=== PATIENT | male | born 1990 | race American Indian/Alaskan Native ===

== ENCOUNTER 2018-12-27 18:16 | Emergency (ER) | payer SELFPAY ==
--- NOTE | 2018-12-27 18:36 | Emergency Department Report ---
Blank Doc - Documentation Documentation: This is a 28-year-old male that presents with lower back pain. This initial assessment/diagnostic orders/clinical plan/treatment(s) is/are subject to change based on patient's health status, clinical progression and re- assessment by fellow clinical providers in the ED. Further treatment and workup at subsequent clinical providers discretion. Patient/guardians urged not to elope from the ED as their condition may be serious if not clinically assessed and managed. Initial orders include: 1- Patient sent to [facility] for further evaluation and treatment 2- xrays
[2018-12-27 18:38] VITALS: BP 127/77
--- NOTE | 2018-12-27 19:36 | XRay Report ---
LUMBAR SPINE 3 VIEWS INDICATION / CLINICAL INFORMATION: Lower back pain. COMPARISON: None available. FINDINGS: VERTEBRAE: No acute fracture. No significant malalignment. Transitional lumbosacral segment with enla rgement of the right L5 transverse process with pseudoarticulation with the sacrum. DISC SPACES / FACET JOINTS:No significant abnormality. PARASPINAL SOFT TISSUES:No significant abnormality. ADDITIONAL FINDINGS: None. Signer Name: Fran Guzman MD Signed: 12/27/2018 7:32 PM Workstation Name: [id number]
[2018-12-27] MEDS ORDERED: PYRIDIUM PO ONE (20:16)
[2018-12-27] MEDS ORDERED: ZITHROMAX PO ONE (20:16)
[2018-12-27] MEDS ORDERED: XYLOCAINE 1% MPF 5 mL INFILTRATI ONE (20:16)
[2018-12-27] MEDS ORDERED: ROCEPHIN IM ONE (20:16)
[2018-12-27 20:38] LABS: Bilirubin,Urine NEG (Negative); Blood,Urine NEG (Negative); Color,Urine Yellow (Yellow); Mucus,Urine FEW /HPF; Protein,Urine <15 mg/dL mg/dL (Negative); WBC,Urine > 182.0 /HPF (0.0-6.0)
--- NOTE | 2018-12-27 21:19 | Emergency Department Report ---
ED Male HPI - General Chief complaint: Pain General Stated complaint: TAILBONE PAIN/STD Time Seen by Provider: 12/27/18 18:35 Source: patient Mode of arrival: Ambulatory Limitations: No Limitations - History of Present Illness Initial comments: Patient is a 28-year-old -[place] male with a history of chronic low back pain who presents to the ED with acute exacerbation of his chronic low back pain and penile discharge and dysuria for the last 2 days. Patient states that he had an unprotected sexual intercourse about a week ago. Patient denies fever, chills, nausea, vomiting, dizziness, headache, chest pain, abdominal pain, testicular pain, cough, sore throat, traumatic injury or heavy lifting. MD Complaint: penile discharge, dysuria, other (penile discharge; Chronic low back pain) -: days(s) (2) Location: penis Radiation: other (low back) Severity: severe Severity scale (0 -10): 7 Quality: aching, sharp Consistency: constant Improves with: none Worsens with: urination discharge, dysuria, other (low back pain). denies: swelling, mass, rash, urinary retention, blood in urine, fever, nausea/vomiting - Related Data Sexually active: Yes Previous Rx's Medication Instructions Recorded Last Taken Type Cyclobenzaprine [Flexeril] 10 mg PO Q8H PRN #15 tablet 12/27/18 Unknown Rx Naproxen [Naprosyn] 500 mg PO Q12H PRN #20 tablet 12/27/18 Unknown Rx Sulfamethoxazole/Trimethoprim 1 each PO Q12H #20 tablet 12/27/18 Unknown Rx [Bactrim DS TAB] metroNIDAZOLE [Flagyl] 500 mg PO Q12HR #20 tab 12/27/18 Unknown Rx Allergies Allergy/AdvReac Type Severity Reaction Status Date / Time No Known Allergies Allergy Unverified 12/27/18 18:38 ED Review of Systems ROS: Stated complaint: TAILBONE PAIN/STD Other details as noted in HPI Comment: All other systems reviewed and negative Constitutional: denies: chills, fever Eyes: denies: eye pain, eye discharge, vision change ENT: denies: ear pain, throat pain Respiratory: denies: cough, shortness of breath, wheezing Cardiovascular: denies: chest pain, palpitations Endocrine: no symptoms reported Gastrointestinal: denies: abdominal pain, nausea, diarrhea Genitourinary: dysuria, frequency, discharge. denies: urgency, hematuria, testicular pain, testicular mass Musculoskeletal: back pain, arthralgia, myalgia. denies: joint swelling Skin: denies: rash, lesions Neurological: denies: headache, weakness, paresthesias Psychiatric: denies: anxiety, depression Hematological/Lymphatic: denies: easy bleeding, easy bruising ED Past Medical Hx - Past Medical History Previous Medical History?: No - Surgical History Past Surgical History?: No - Social History Smoking Status: Never Smoker Substance Use Type: None - Medications Home Medications: Home Medications Medication Instructions Recorded Confirmed Last Taken Type Cyclobenzaprine [Flexeril] 10 mg PO Q8H PRN #15 tablet 12/27/18 Unknown Rx Naproxen [Naprosyn] 500 mg PO Q12H PRN #20 tablet 12/27/18 Unknown Rx Sulfamethoxazole/Trimethoprim 1 each PO Q12H #20 tablet 12/27/18 Unknown Rx [Bactrim DS TAB] metroNIDAZOLE [Flagyl] 500 mg PO Q12HR #20 tab 12/27/18 Unknown Rx ED Physical Exam - General Limitations: No Limitations General appearance: alert, in no apparent distress - Head Head exam: Present: atraumatic, normocephalic, normal inspection - Eye Eye exam: Present: normal appearance, PERRL, EOMI. Absent: scleral icterus, conjunctival injection Pupils: Present: normal accommodation - ENT ENT exam: Present: normal exam, normal orophraynx, mucous membranes moist, TM's normal bilaterally, normal external ear exam - Neck Neck exam: Present: normal inspection, full ROM. Absent: tenderness, meningismus, lymphadenopathy, thyromegaly - Respiratory Respiratory exam: Present: normal lung sounds bilaterally. Absent: respiratory distress, wheezes, rales, rhonchi, chest wall tenderness, accessory muscle use - Cardiovascular Cardiovascular Exam: Present: regular rate, normal rhythm, normal heart sounds. Absent: systolic murmur, diastolic murmur, rubs, gallop - GI/Abdominal GI/Abdominal exam: Present: soft, normal bowel sounds. Absent: tenderness, guarding, rebound, hyperactive bowel sounds, hypoactive bowel sounds - Rectal Rectal exam: Present: deferred - exam: Present: urethral discharge, circumcision. Absent: testicular tenderness, scrotal swelling, vertical testicular lie External exam: Present: normal external exam - Extremities Exam Extremities exam: Present: normal inspection, full ROM, normal capillary refill - Back Exam Back exam: Present: normal inspection, full ROM, tenderness (Palpable lumbosacral paraspinal tenderness). Absent: CVA tenderness (R), CVA tenderness (L), muscle spasm, paraspinal tenderness, vertebral tenderness - Neurological Exam Neurological exam: Present: alert, oriented X3, CN II-XII intact, normal gait, reflexes normal - Psychiatric Psychiatric exam: Present: normal affect, normal mood - Skin Skin exam: Present: warm, dry, intact, normal color. Absent: rash ED Course Vital Signs 12/27/18 18:35 Temperature 98.5 F Pulse Rate 72 Respiratory 18 Rate Blood Pressure 127/77 O2 Sat by Pulse 100 Oximetry - Reevaluation(s) Reevaluation #1: 12/27/18 21:31 This is a 28-year-old male with a history of chronic low back pain who presented to the ED with worsening low back pain as well as dysuria and penile discharge for 2 days. In the ED the patient is alert and oriented 3 and is not in distress with normal vital signs. Urinalysis shows significant urinary tract infection, characteristic of sexual transmitted disease in the male of his age. Patient was empirically treated for chlamydia and gonorrhea in the ED and discharged home on pain medications and muscle relaxants for his chronic low back pain as well as antibiotics for urinary tract infection. Patient was advised to ensure that his sexual partner gets treated at the health department, and was also advised to follow-up himself department for further STD tests. Patient was advised to return to the ED immediately if symptoms get worse. ED Medical Decision Making - Medical Decision Making This is a 28-year-old male with a history of chronic low back pain who presented to the ED with worsening low back pain as well as dysuria and penile discharge for 2 days. In the ED the patient is alert and oriented 3 and is not in distress with normal vital signs. Urinalysis shows significant urinary tract infection, characteristic of sexual transmitted disease in the male of his age. Patient was empirically treated for chlamydia and gonorrhea in the ED and discharged home on pain medications and muscle relaxants for his chronic low back pain as well as antibiotics for urinary tract infection. Patient was advised to ensure that his sexual partner gets treated at the health department, and was also advised to follow-up himself department for further STD tests. Patient was advised to return to the ED immediately if symptoms get worse. - Differential Diagnosis chronic low back pain; STD; Urethritis; acute UTI; Muscle spasm Critical care attestation.: If time is entered above; I have spent that time in minutes in the direct care of this critically ill patient, excluding procedure time. ED Disposition Clinical Impression: Urethritis, nonspecific, STD (sexually transmitted disease), Acute urinary tract infection Chronic lower back pain Qualifiers: Back pain laterality: unspecified Sciatica presence: without sciatica Qualified Code(s): M54.5 - Low back pain; G89.29 - Other chronic pain Disposition: TO HOME OR SELFCARE Is pt being admited?: No Does the pt Need Aspirin: No Condition: Stable Instructions: Nonspecific Urethritis in Men (ED), Sexually Transmitted Diseases (ED), Safe Sex (ED), Chronic Back Pain (ED) Additional Instructions: Take medications with food, drink plenty of fluids and follow-up with the [facility] for further evaluation and STD tests. Ensure that to a sexual partner also gets tested and treated at the health Department. Return to the ED immediately if symptoms get worse. Practice safe sex at all times Prescriptions: Sulfamethoxazole/Trimethoprim [Bactrim DS TAB] 1 each PO Q12H #20 tablet metroNIDAZOLE [Flagyl] 500 mg PO Q12HR #20 tab Cyclobenzaprine [Flexeril] 10 mg PO Q8H PRN #15 tablet PRN Reason: Muscle Spasm Naproxen [Naprosyn] 500 mg PO Q12H PRN #20 tablet PRN Reason: Pain , Severe (7-10) Referrals: [facility] [Outside] - 3-5 Days Forms: STI Treatment and Prevention Time of Disposition: 21:18 Print Language: JAPANESE
== END 2018-12-27 21:51 | disposition home or self-care (01) ==
LOC: ED 18:16
DX: N34.2 Other urethritis (principal); A64 Unspecified sexually transmitted disease; N39.0 Urinary tract infection, site not specified; Z79.899 Other long term (current) drug therapy
CPT/HCPCS: 72100; 81001; 96372; 99284; J0696